=== PATIENT | female | born 1935 | race Hispanic/Latino ===

== ENCOUNTER → 2019-03-06 | Outpatient (CLI) | payer MEDICARE ==
[~2019-03-06] MED LIST: AMOX TR-K CLV1 EAC1 PO; ASCORBIC ACID500 MG PO; DEXILANT60 MG PO; DIOVAN320 MG PO; ECOTRIN81 MG PO; FAMOTIDINE40 MG PO; FERROUS SULFAT325 M1 PO; FLAGYL500 MG PO; FUROSEMIDE INJ 10 MG/ML 4 ML VIAL ONE; LATANOPROST2.5 ML OU; LUBRICANT EYE D15 M1 OP; MELOXICAM15 MG PO; METHOCARBAMOL750 MG PO; MIRTAZAPINE30 MG PO; NORVASC10 MG PO; PANTOPRAZOLE SO40 MG PO; POTASSIUM CHLO10 MEQ PO; QUESTRAN PACKET4 GM PO; REFRESH OPTIVE10 ML OU; ROPINIROLE HCL0.5 MG PO; SIMBRINZA OP; SIMBRINZA OU; SULFASALAZINE500 MG PO; SYSTANE GEL EYE10 ML OU; TEMAZEPAM15 MG PO; ULTRAM 50MG50 MG PO; VANCOCIN HCL250 MG PO; VITAMIN B-121000 MCG PO
--- NOTE | 2019-03-06 17:38 | Diagnostic Imaging Report ---
Renal Scan with Lasix Washout Clinical information: 83 F with renal calculi and frequent UTI's Technique: Following intravenous administration of 11 mCi of Tc-99m MAG3, dynamic images of the kidneys in the posterior projection were obtained through 40 minutes. Lasix 40 mg was administered intravenously at 10 minutes post injection of the tracer. Report: Left kidney: Perfusion of the left kidney is prompt. The kidney has a distorted reniform shape and is significantly reduced in size. A photopenic defect is seen in the upper pole medially; this never fills with tracer during the study. Extraction of tracer from the blood pool by the remaining renal parenchyma is mildly reduced although may be normal for age. Clearance of tracer from the renal parenchyma begins promptly. The pelvicalyceal system is not dilated. No significant increased pooling of tracer is seen within the pelvicalyceal system. Drainage of tracer from the pelvicalyceal system is adequate prior to administration of Lasix. No significant stasis of tracer is seen within the left ureter. Right kidney: Perfusion to the right kidney is prompt. The right kidney has a slightly elongated reniform shape with thinning of the renal parenchyma in the upper and lower pole. Extraction of tracer by the renal parenchyma is mildly decreased although may be normal for age. Clearance of tracer from the renal parenchyma is prompt. The pelvicalyceal system is not dilated. Two ureters are identified. These merge into a single ureter in the proximal third of the ureter. Physiologic pooling of tracer is seen within the pelvicalyceal system. Drainage of tracer from the pelvicalyceal system is adequate prior to administration of Lasix. No significant stasis of tracer is seen within the right ureter. Differential renal function: The left kidney contributes 35% of total renal function and the right kidney contributes 65% (normal 43-57%). Impression: 1. Significant loss of renal parenchyma due to scarring in the left kidney accounts for the decreased differential function of 35%. Some medical renal disease is present. No hydronephrosis is present. No physiologically significant obstruction of the renal collecting system is present. A perirenal cyst is present in the upper pole medially. 2. Some loss of renal function is seen in the right kidney, evidenced by the thinning of the renal cortex in the upper and lower poles. Medical renal disease is also present. No hydronephrosis is present. No physiologically significant obstruction of the renal collecting system is present. 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 Signed by: Dr. Caty Mills M.D. on 03/06/2019 5:35 PM
== END ==
LOC: NM 10:02
PROVIDERS: ATTEND Urology
DX: N20.0 Calculus of kidney (principal); N39.0 Urinary tract infection, site not specified; R31.21 Asymptomatic microscopic hematuria
CPT/HCPCS: 78708; A9562; J1940

== ENCOUNTER 2019-03-24 06:54 | Inpatient (IN) | payer MEDICARE ==
[~2019-03-24] VITALS: Ht 149.9 cm; Wt 63.5 kg
--- OUTSIDE RECORDS SUMMARY | 2019-03-24 06:57 | XMS REPORT ---
Author Author Rose Santizo [facility] eClinicalWorks Address Unknown Phone Unavailable Care Team Providers Care Dairy Manager Name Role Phone Rose Santizo Unavailable Allergies, Adverse Reactions, Alerts Substance Reaction Event Type N.K.D.A. 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 Medications Medication Code System Code Instructions Start Date End Date Status Dosage Potassium Chloride [facility] [address]-33 10 MEQ Orally Twice a day Active 1 capsule with food Clopidogrel Bisulfate [facility] 91714082621 75 MG Orally Once a day Active 1 tablet Mirtazapine [facility] 47867473790 30 MG Orally Once a day Active 1 tablet at bedtime Vitamin D (Ergocalciferol) [facility] 77359251966 47750 UNIT Orally Active 1 capsule Furosemide [facility] [address]-31 20 MG Orally prn Active 1 tablet Latanoprost [facility] 48145606272 0.005 % Ophthalmic Once a day Active 1 drop into affected eye in the evening Ciprofloxacin [facility] [address]-85 500 MG Orally every 12 hrs Active not defined Dexilant [facility] 74406180631 60 MG Orally Once a day Active 1 capsule Valsartan [facility] [address]-57 160 MG Orally Once a day Active 1 null Famotidine [facility] 35793382067 40 MG Orally Once a day Active 1 tablet at bedtime Vitamin C [facility] 83873863946 250 MG Orally Once a day Active 1 tablet Sulfasalazine ND 34155359684 500 MG Orally every 6 hrs Active 1 tablet Ropinirole HCl [facility] 46195510894 0.5 MG Orally Once a day Active 1 tablet 1 to 3 hours before bedtime OcuSoft Lid Scrub [facility] 67246270014 - Externally Active as directed Tylenol [facility] 90694975667 325 MG Orally every 4 hrs Active 1 tablet as needed Simbrinza [facility] 83768859285 1-0.2 % Ophthalmic Three times a day Active 1 drop into affected eye Ecotrin Low Strength [facility] 26162124563 81 MG Orally Once a day Active 1 tablet Vital Signs Date/Time: February 08, 2019 BMI 30.77 Index Weight 142.2 lbs Height 57 in Temperature 97.4 F Cardiac Monitoring Heart Rate 96 /min Blood Pressure Diastolic 76 mm Hg Blood Pressure Systolic 118 mm Hg Results No Known Results Summary Purpose eClinicalWorks Submission
--- OUTSIDE RECORDS SUMMARY | 2019-03-24 06:57 | XMS REPORT ---
Author [facility] Address Unknown Phone Unavailable Care Team Providers Care Line Clearance Foreman Name Role Phone KATHY MACDONALD Unavailable Unavailable Payers Payer Name Policy Type Policy Number Effective Date Expiration Date Problems This patient has no known problems. Allergies, Adverse Reactions, Alerts Allergy Name Allergy Type Status Severity Reaction(s) Onset Date Inactive Date Treating Clinician Comments No Known Drug Allergies DA Active U 2019-02-24 00:00:00 No Known Allergies DA Active U 2018-07-25 00:00:00 No Known Allergies DA Active U 2018-05-29 00:00:00 No Known Allergies DA Active U 2016-09-03 00:00:00 Medications This patient has no known medications. Results Test Description Test Time Test Comments Text Results Atomic Results Result Comments BASIC METABOLIC PANEL 2019-03-15 06:21:00 SODIUM (test code=NA) 142 mmol/L 136-145 POTASSIUM (test code=K) 4.4 mmol/L 3.5-5.1 CHLORIDE (test code=CL) 104.0 mmol/L 98-107 CARBON DIOXIDE (test code=CO2) 21.9 mmol/L 21-32 GLUCOSE (test code=GLU) 136 mg/dL 70-110 BLOOD UREA NITROGEN (test code=BUN) 30 mg/dL 7-18 GLOMERULAR FILTRATION RATE (test code=GFR) 45.0 >60 Unit of measure: mL/min/1.73 [id number] Range:Healthy Adults >90 mL/min/1.73 m2 For Chronic Kidney Disease: Stage II Mild Decrease in GFR 60-90 Stage III Moderate Decrease in GFR 30-59 Stage IV Severe Decrease in GFR 15-29 Stage V Kidney Failure <15 CREATININE (test code=CREAT) 1.15 mg/dL 0.55-1.30 CALCIUM (test code=CA) 10.2 mg/dL 8.2-10.1 HGB [id number] 05:43:00* Test Item Value Reference Range Comments HEMOGLOBIN (test code=HGB) 12.1 g/dL 12-16 HEMATOCRIT (test code=HCT) 37.4 % 37-47 RENAL SCAN [id number] 17:20:00 [place] [id number] Patient Name: ANNA PÉREZ MR #: [id number] : 1935 Age/Sex: 83/F Req #: [id number] Adm Physician: Ordered by: KATHY MACDONALD MD Report #: [id number] Location: OR Room/Bed: Procedure: [id number] NM/ RENAL SCAN W/LASIX Exam Date: Exam Time: REPORT STATUS: Signed Renal Scan with Las ix Washout Clinical information: 83 F with renal calculi and frequent UTI's Technique: Following intravenous administration of 11 mCi of Tc-99m MAG3, dynamic images of the kidneys in the posterior projection were obtained through 40 minutes. Lasix 40 mg was administered intravenously at 10 minutes post injection of the tracer. Report: Left kidney: Perfusion of the left k idney is prompt. The kidney has a distorted reniform shape and is significant ly reduced in size. A photopenic defect is seen in the upper pole medially; t his never fills with tracer during the study. Extraction of tracer from the blood pool by the remaining renal parenchyma is mildly reduced although may be normal for age. Clearance of tracer from the renal parenchyma begins promptl y. The pelvicalyceal system is not dilated. No significant increased pooling of tracer is seen within the pelvicalyceal system. Drainage of tracer from t he pelvicalyceal system is adequate prior to administration of Lasix. No sign ificant stasis of tracer is seen within the left ureter. Right kidney: Pe rfusion to the right kidney is prompt. The right kidney has a slightly elonga blaine reniform shape with thinning of the renal parenchyma in the upper and lowe r pole. Extraction of tracer by the renal parenchyma is mildly decreased altho ugh may be normal for age. Clearance of tracer from the renal parenchyma is pr ompt. The pelvicalyceal system is not dilated. Two ureters are identified. T hese merge into a single ureter in the proximal third of the ureter. Physiolo gic pooling of tracer is seen within the pelvicalyceal system. Drainage of tr acer from the pelvicalyceal system is adequate prior to administration of Lasi x. No significant stasis of tracer is seen within the right ureter. Diff erential renal function: The left kidney contributes 35% of total renal functi on and the right kidney contributes 65% (normal 43-57%). Impression: 1. Significant loss of renal parenchyma due to scarring in the left kidney acc ounts for the decreased differential function of 35%. Some medical renal dise ase is present. No hydronephrosis is present. No physiologically significant obstruction of the renal collecting system is present. A perirenal cyst is p resent in the upper pole medially. 2. Some loss of renal function is seen i n the right kidney, evidenced by the thinning of the renal cortex in the upper and lower poles. Medical renal disease is also present. No hydronephrosis is present. No physiologically significant obstruction of the renal collecting s ystem is present. 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 Signed by: Dr. Joe Mills M.D. on 03/06/2019 5:35 PM Dictated By: JOE MILLS MD E lectronically Signed By: JOE MILLS MD on 03/06/191734 Transcribed By: ESSIE Dumont on 03/06/191734 COPY TO: KATHY MACDONALD MD COMPREHENSIVE METABOLIC [id number] 15:47:00* Test Item Value Reference Range Comments SODIUM (test code=NA) 133 mmol/L 136-145 POTASSIUM (test code=K) 4.1 mmol/L 3.5-5.1 CHLORIDE (test code=CL) 100.0 mmol/L 98-107 CARBON DIOXIDE (test code=CO2) 25.5 mmol/L 21-32 GLUCOSE (test code=GLU) 91 mg/dL 70-110 BLOOD UREA NITROGEN (test code=BUN) 13 mg/dL 7-18 GLOMERULAR FILTRATION RATE (test code=GFR) 58.9 >60 Unit of measure: mL/min/1.73 [id number] Range:Healthy Adults >90 mL/min/1.73 m2 For Chronic Kidney Disease: Stage II Mild Decrease in GFR 60-90 Stage III Moderate Decrease in GFR 30-59 Stage IV Severe Decrease in GFR 15-29 Stage V Kidney Failure <15 CREATININE (test code=CREAT) 0.91 mg/dL 0.55-1.30 TOTAL PROTEIN (test code=PROT) 6.9 g/dL 6.4-8.2 ALBUMIN (test code=ALB) 3.6 g/dL 3.4-5.0 GLOBULIN (test code=GLOB) 3.3 g/dL 2.2-4.2 ALBUMIN/GLOBULIN RATIO (test code=A/G) 1.1 0.7-2.0 CALCIUM (test code=CA) 9.9 mg/dL 8.2-10.1 BILIRUBIN TOTAL (test code=BILT) 0.27 mg/dL 0.2-1.00 SGOT/AST (test code=AST) 10.0 U/L 15-37 SGPT/ALT (test code=ALT) 14.0 U/L 12-78 Please note new normal range. ALKALINE PHOSPHATASE TOTAL (test code=ALKP) 85 U/L 46-116 URINALYSIS [id number] 15:38:00* Test Item Value Reference Range Comments UA COLOR (test code=COLU) YELLOW YELLOW UA APPEARANCE (test code=APPU) CLOUDY CLEAR UA GLUCOSE DIPSTICK (test code=DGLUU) NEGATIVE NEGATIVE UA BILIRUBIN DIPSTICK (test code=BILU) NEGATIVE NEGATIVE UA KETONE DIPSTICK (test code=KETU) NEGATIVE mg/dL NEG UA SPECIFIC GRAVITY (test code=SGU) 1.020 1.003-1.035 UA BLOOD DIPSTICK (test code=KWESI) TRACE NEGATIVE UA PH DIPSTICK (test code=FCO) 6.0 >6.5 UA PROTEIN DIPSTICK (test code=PROU) NEGATIVE mg/dL NEG UA UROBILINIOGEN DIPSTICK (test code=URO) 0.2 mg/dL NORM UA NITRITE DIPSTICK (test code=GERALD) NEGATIVE NEG UA LEUKOCYTE ESTERASE DIPSTICK (test code=LEUU) 2+ NEGATIVE UA WBC (test code=WBCU) >30 /HPF 0-2 UA RBC (test code=RBCU) 0-2 /HPF 0-2 UA EPITHELIAL CELLS (test code=EPIU) FEW /HPF 0-2 UA BACTERIA (test code=BACU) LOADED /HPF NONE PROTHROMBIN [id number] 15:38:00* Test Item Value Reference Range Comments PROTHROMBIN TIME PATIENT (test code=PTP) 11.7 secs 10.1-12.5 INTERNATIONAL NORMAL RATIO (test code=INR) 1.04 <2.0 RECOMMENDED THERAPEUTIC RANGE FOR ORAL ANTICOAGULANTTREATMENT: CONDITION INRProphylaxis of venous thrombosis in 2.0 - 3.0 high-risk medical or surgical patientsTreatment of venous thrombosis 2.0 - 3.0Prevention of embolism 2.0 - 3.0Prevention of recurrent embolism, or 3.0 - 4.5 patients with mechanical prosthetic intravascular valves IS PATIENT ON ANTICOAGULANTS ? YLIST ANTICOAGULANT/ANTI PLT MEDICATION : Aspirin Has Lab been notified if Patient is on Heparin Drip? NOTHROMBOPLASTIN TIME [id number] 15:38:00* Test Item Value Reference Range Comments PTT ACTIVATED (test code=APTT) 29.8 secs 24.9-37.0 IS PATIENT ON ANTICOAGULANTS ? YLIST ANTICOAGULANT/ANTI PLT MEDICATION : Aspirin Has Lab been notified if Patient is on Heparin Drip? NOCBC W/AUTO [id number] 15:20:00* Test Item Value Reference Range Comments WHITE BLOOD CELL (test code=WBC) 5.0 K/mm3 5.8-11.0 RED BLOOD CELL (test code=RBC) 4.30 M/mm3 4.2-5.4 HEMOGLOBIN (test code=HGB) 12.7 g/dL 12-16 HEMATOCRIT (test code=HCT) 37.9 % 37-47 MEAN CELL VOLUME (test code=MCV) 88 fL 80-98 MEAN CELL HGB (test code=MCH) 29.5 pg 27-34 MEAN CELL HGB CONCENTRATION (test code=MCHC) 33.5 g/dL 30.8-34.1 RED CELL DISTRIBUTION WIDTH (test code=RDW) 15.7 % 11-16 PLT (test code=PLT) 167 K/mm3 130-400 MEAN PLATELET VOLUME (test code=MPV) 11.9 fL 8.9-12.1 NEUTROPHIL % (test code=NT%) 53.5 % 45-70 LYMPHOCYTE % (test code=LY%) 39.1 % 20-40 MONOCYTE % (test code=MO%) 6.6 % 3-10 EOSINOPHIL % (test code=EO%) 0.4 % 1-5 BASOPHIL % (test code=BA%) 0.2 % 0.0-1.1 NEUTROPHIL # (test code=NT#) 2.67 K/mm3 2.00-7.50 LYMPHOCYTE # (test code=LY#) 1.95 K/mm3 1.50-4.00 MONOCYTE # (test code=MO#) 0.33 K/mm3 0.2-0.8 EOSINOPHIL # (test code=EO#) 0.02 K/mm3 0.04-0.4 BASOPHIL # (test code=BA#) 0.01 K/mm3 0.02-0.10 MANUAL DIFF REQUIRED (test code=MDIFF) NO MANUAL DIFF NUCLEATED RED BLOOD CELL (test code=NRBC) 0 % 0-0
--- OUTSIDE RECORDS SUMMARY | 2019-03-24 06:57 | XMS REPORT ---
Author Author Rose Santizo [facility] eClinicalWorks Address Unknown Phone Unavailable Care Team Providers Care Die Sinker Apprentice Name Role Phone Rose Santizo Unavailable Allergies, [...] Instructions Start Date End Date Status Dosage Vitamin C [facility] 19091322407 250 MG Orally Once a day Active 1 tablet Mirtazapine ND 41793279202 30 MG Orally Once a day Active 1 tablet at bedtime Tylenol ND 60190068925 325 MG Orally every 4 hrs Active 1 tablet as needed Dexilant [facility] 58641862761 60 MG Orally Once a day Active 1 capsule Clopidogrel Bisulfate ND 26017734398 75 MG Orally Once a day Active 1 tablet Latanoprost ND 80401270661 0.005 % Ophthalmic Once a day Active 1 drop into affected eye in the evening Potassium Chloride [facility] [address]-63 10 MEQ Orally Twice a day Active 1 capsule with food Vitamin D (Ergocalciferol) [facility] 83753682311 92216 UNIT Orally Active 1 capsule Ropinirole HCl ND 44325966167 0.5 MG Orally Once a day Active 1 tablet 1 to 3 hours before bedtime Sulfasalazine ND 60056470803 500 MG Orally every 6 hrs Active 1 tablet Simbrinza ND 13637025221 1-0.2 % Ophthalmic Three times a day Active 1 drop into affected eye PredniSONE ND 99537706301 5 MG Orally Once a day January 11, 2019 January 25, 2019 Active 2 tabs in the morning with food for 7 days, then 1 tablet per day for 7 days Valsartan [facility] [address]-71 160 MG Orally Once a day Active 1 null OcuSoft Lid Scrub [facility] 76612708298 - Externally Active as directed Famotidine [facility] 04847499610 40 MG Orally Once a day Active 1 tablet at bedtime Ecotrin Low Strength [facility] 65038380843 81 MG Orally Once a day Active 1 tablet Vital Signs Date/Time: January 11, 2019 BMI 29 Index Weight 134 lbs Height 57 in Temperature 98.7 F Cardiac Monitoring Heart Rate 76 /min Blood Pressure Diastolic 80 mm Hg Blood Pressure Systolic 146 mm Hg Results No Known Results Summary Purpose eClinicalWorks Submission
--- OUTSIDE RECORDS SUMMARY | 2019-03-24 06:57 | XMS REPORT | Continuity of Care Document ---
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 rheumatoid factor Active Problem 02/17/2019 Lee Darnell Medications Medication Details Route Status Patient Instructions Ordering Provider Order Date Source PredniSONE 2 tabs in the morning with food for 7 days, then 1 tablet per day for 7 days Orally Active 5 MG Orally Once a day [place] 01/11/2019 Lee Darnell Vitamin C 1 tablet Orally Active 250 MG Orally Once a day [place] Lee Darnell Mirtazapine 1 tablet at bedtime Orally Active 30 MG Orally Once a day [place] Lee Darnell Tylenol 1 tablet as needed Orally Active 325 MG Orally every 4 hrs [place] Lee Darnell Dexilant 1 capsule Orally Active 60 MG Orally Once a day [place] Lee Darnell Clopidogrel Bisulfate 1 tablet Orally Active 75 MG Orally Once a day Sukhdev Darnell Latanoprost 1 drop into affected eye in the evening Ophthalmic Active 0.005 % Ophthalmic Once a day Sukhdev Darnell Potassium Chloride 1 capsule with food Orally Active 10 MEQ Orally Twice a day [place] Lee Darnell Vitamin D (Ergocalciferol) 1 capsule Orally Active 22135 UNIT Orally [place] Lee Darnell Ropinirole HCl 1 tablet 1 to 3 hours before bedtime Orally Active 0.5 MG Orally Once a day [place] Lee Darnell Sulfasalazine 1 tablet Orally Active 500 MG Orally every 6 hrs Sukhdev Darnell Simbrinza 1 drop into affected eye Ophthalmic Active 1-0.2 % Ophthalmic Three times a day Santizochristina Darnell Valsartan 1 null Orally Active 160 MG Orally Once a day Sukhdev Darnell OcuSoft Lid Scrub as directed Externally Active - Externally Santizochristina Darnell Famotidine 1 tablet at bedtime Orally Active 40 MG Orally Once a day Santizochristina Darnell Ecotrin Low Strength 1 tablet Orally Active 81 MG Orally Once a day Santizochristina Darnell Furosemide 1 tablet Orally Active 20 MG Orally prn Santizo Lee Darnell Ciprofloxacin not defined Orally Active 500 MG Orally every 12 hrs Santizochristina Darnell Allergies, Adverse Reactions, Alerts Substance Category Reaction Severity Reaction type Status Date Reported Comments Source N.K.D.A. Adverse Reaction Info Not Available Adverse Reaction Active 02/08/2019 Lee Darnell Immunizations No Data Provided for This Section Results No Data Provided for This Section Pathology Reports No Data Provided for This Section Diagnostic Reports No Data Provided for This Section Consultation Notes No Data Provided for This Section Discharge Summaries No Data Provided for This Section History and Physicals No Data Provided for This Section Vital Signs Vital Sign Value Date Comments Source Weight 142.2 02/08/2019 Lee Seweller Height 57 02/08/2019 Lee Darnell Temperature Oral (F) 97.4 F 02/08/2019 Lee Darnell Heart Rate 96 02/08/2019 Lee Darnell Diastolic (mm Hg) 76 02/08/2019 Lee Darnell Systolic (mm Hg) 118 02/08/2019 Lee Darnell Weight 134 01/11/2019 Lee Darnell Height 57 01/11/2019 Lee Darnell Temperature Oral (F) 98.7 F 01/11/2019 Lee Darnell Heart Rate 76 01/11/2019 Lee Darnell Diastolic (mm Hg) 80 01/11/2019 Lee Darnell Systolic (mm Hg) 146 01/11/2019 Lee Darnell Encounters No Data Provided for This Section Procedures No Data Provided for This Section Assessment and Plan No Data Provided for This Section Plan of Care No Data Provided for This Section Social History No Data Provided for This Section Family History No Data Provided for This Section Advance Directives No Data Provided for This Section Functional Status No Data Provided for This Section
--- OUTSIDE RECORDS SUMMARY | 2019-03-24 07:08 | XMS REPORT | Continuity of Care Document ---
Author Author [facility] Address Unknown Phone Unavailable Care Team Providers Care Inserting Operator Name Role Phone [employer] Dennoo Unavailable Unavailable Problems Problem Status Onset Date [...] Active 5 MG Orally Once a day [place] 01/11/2019 Lee Darnell Vitamin C 1 tablet Orally Active 250 MG Orally Once a day [place] Lee Darnell Mirtazapine 1 tablet at bedtime Orally Active 30 MG Orally Once a day [place] Lee Darnell Tylenol 1 tablet as needed Orally Active 325 MG Orally every 4 hrs [place] Lee Darnell Dexilant 1 capsule Orally Active 60 MG Orally Once a day [place] Lee Darnell Clopidogrel Bisulfate 1 tablet Orally Active 75 MG Orally Once a day Sukhdev Darnell Latanoprost 1 drop into affected eye in the evening Ophthalmic Active 0.005 % Ophthalmic Once a day Sukhdev Darnell Potassium Chloride 1 capsule with food Orally Active 10 MEQ Orally Twice a day [place] Lee Darnell Vitamin D (Ergocalciferol) 1 capsule Orally Active 22393 UNIT Orally [place] Lee Darnell Ropinirole HCl 1 tablet 1 to 3 hours before bedtime Orally Active 0.5 MG Orally Once a day [place] Lee Darnell Sulfasalazine 1 tablet Orally Active [...]
[2019-03-24 07:46] LABS: INR 1.03; PARTIAL THROMBOPLASTIN TIME 28.3 seconds (23.8-35.5)
[2019-03-24 07:47] LABS: HEMATOCRIT 31.9 % (34.2-44.1); HEMOGLOBIN 10.2 g/dL (12.0-16.0); MEAN CORPUSCULAR HEMOGLOBIN 29.1 pg (28-32); MEAN CORPUSCULAR VOLUME 90.9 fL (81-99); PLATELET COUNT 198 x10e3/uL (140-360); RED BLOOD COUNT 3.51 x10e6/uL (3.6-5.1); RED CELL DISTRIBUTION WIDTH 15.2 % (11.7-14.4)
[2019-03-24 07:48] LABS: BASOPHILS % 0.3 % (0.0-1.0); EOSINOPHILS # (AUTO) 0.1 (0.0-0.4); EOSINOPHILS % 0.9 % (0.0-6.0); LYMPHOCYTES # (AUTO) 1.3 (1.0-3.2); LYMPHOCYTES % 21.4 % (18.0-39.1); MONOCYTES # (AUTO) 0.3 (0.2-0.8); MONOCYTES % 5.8 % (4.4-11.3); NEUTROPHILS # (AUTO) 4.2 (2.1-6.9); NEUTROPHILS % 71.1 % (38.7-80.0)
[2019-03-24 07:56] LABS: ALANINE AMINOTRANSFERASE 10 IU/L (0-55); ALBUMIN 3.1 g/dL (3.5-5.0); ALBUMIN/GLOBULIN RATIO 0.9 (0.8-2.0); ALKALINE PHOSPHATASE 74 IU/L (40-150); ANION GAP 13.9 mmol/L (8-16); BLOOD UREA NITROGEN 18 mg/dL (7-26); BUN/CREATININE RATIO 21 (6-25); CALCIUM 10.2 mg/dL (8.4-10.2); CARBON DIOXIDE 22 mmol/L (22-29); CHLORIDE 108 mmol/L (98-107); CREATININE, SERUM 0.84 mg/dL (0.57-1.11); EST GLOMERULAR FILTRATION RATE > 60 ML/MIN (60-); GLUCOSE 115 mg/dL (74-118); POTASSIUM 3.9 mmol/L (3.5-5.1); SODIUM 140 mmol/L (136-145)
[2019-03-24] MEDS ORDERED: ULTRAM 50MG50 MG PO (08:26)
[2019-03-24] MEDS ORDERED: DIOVAN320 MG PO (08:26)
[2019-03-24] MEDS ORDERED: SIMBRINZA OU (08:26)
[2019-03-24] MEDS ORDERED: REFRESH OPTIVE10 ML OU (08:26)
[2019-03-24] MEDS ORDERED: AMOX TR-K CLV1 EAC1 PO (08:26)
[2019-03-24] MEDS ORDERED: SYSTANE GEL EYE10 ML OU (08:26)
[2019-03-24] MEDS ORDERED: DEXILANT60 MG PO (08:26)
[2019-03-24] MEDS ORDERED: TEMAZEPAM15 MG PO (08:26)
[2019-03-24] MEDS ORDERED: METHOCARBAMOL750 MG PO (08:26)
[2019-03-24] MEDS ORDERED: ROPINIROLE HCL0.5 MG PO (08:26)
[2019-03-24] MEDS ORDERED: MIRTAZAPINE30 MG PO (08:26)
[2019-03-24] MEDS ORDERED: POTASSIUM CHLO10 MEQ PO (08:26)
[2019-03-24] MEDS ORDERED: LATANOPROST2.5 ML OU (08:26)
[2019-03-24] MEDS ORDERED: FAMOTIDINE40 MG PO (08:26)
[2019-03-24] MEDS ORDERED: ECOTRIN81 MG PO (08:26)
[2019-03-24] MEDS ORDERED: MELOXICAM15 MG PO (08:26)
[2019-03-24] MEDS ORDERED: SULFASALAZINE500 MG PO (08:26)
[2019-03-24 09:55] LABS: BASOPHILS % 0.7 % (0.0-1.0); EOSINOPHILS % 0.5 % (0.0-6.0); HEMATOCRIT 28.2 % (34.2-44.1); HEMOGLOBIN 9.1 g/dL (12.0-16.0); LYMPHOCYTES # (AUTO) 1.4 (1.0-3.2); MEAN CORPUSCULAR HEMOGLOBIN 29.4 pg (28-32); MEAN CORPUSCULAR HGB CONC 32.3 g/dL (31-35); MONOCYTES # (AUTO) 0.3 (0.2-0.8); MONOCYTES % 5.9 % (4.4-11.3); NEUTROPHILS % 68.2 % (38.7-80.0); PLATELET COUNT 178 x10e3/uL (140-360); RED CELL DISTRIBUTION WIDTH 15.3 % (11.7-14.4)
--- OUTSIDE RECORDS SUMMARY | 2019-03-24 11:25 | XMS REPORT | Continuity of Care Document ---
Author Author [employer] Address Unknown Phone Unavailable Care Team Providers Care Lighting Director Name Role Phone [employer] Unavailable Unavailable Problems Problem Status Onset Date [...] Active 5 MG Orally Once a day [place] 01/11/2019 Lee Darnell Vitamin C 1 tablet Orally Active 250 MG Orally Once a day [place] Lee Darnell Mirtazapine 1 tablet at bedtime Orally Active 30 MG Orally Once a day [place] Lee Darnell Tylenol 1 tablet as needed Orally Active 325 MG Orally every 4 hrs [place] Lee Darnell Dexilant 1 capsule Orally Active 60 MG Orally Once a day [place] Lee Darnell Clopidogrel Bisulfate 1 tablet Orally Active 75 MG Orally Once a day Sukhdev Darnell Latanoprost 1 drop into affected eye in the evening Ophthalmic Active 0.005 % Ophthalmic Once a day Sukhdev Darnell Potassium Chloride 1 capsule with food Orally Active 10 MEQ Orally Twice a day [place] Lee Darnell Vitamin D (Ergocalciferol) 1 capsule Orally Active 81944 UNIT Orally [place] Lee Darnell Ropinirole HCl 1 tablet 1 to 3 hours before bedtime Orally Active 0.5 MG Orally Once a day [place] Lee Darnell Sulfasalazine 1 tablet Orally Active [...]
[2019-03-24 12:33] VITALS: BP 152/71
--- NOTE | 2019-03-24 12:37 | NUR ---
Pt arrived on unit via stretcher, pt is AAOx3 in no acute distress noted, resp is even and unlabored, bed is locked, in lowest position, and side rails up x2. Pt and family oriented safety and to use the call light for assistance. Pt and family members verbalized understanding.
[2019-03-24 12:59] VITALS: BP 152/71
[2019-03-24] MEDS ORDERED: PROTONIX 200MG/SODIUM CHLORIDE 0.9% 250 ML BAG IV SCH (13:45)
[2019-03-24] MEDS ORDERED: PANTOPRAZOLE 40 MG 10ML VIAL IV SCH (13:45)
[2019-03-24] MEDS: VALSARTAN 160 MG TAB PO SCH (14:00)
--- NOTE | 2019-03-24 14:00 | NUR ---
Informed Dr. Estrada of new consult
[2019-03-24] MEDS ORDERED: PANTOPRAZOLE INJ 80 MG in SODIUM CHLORIDE 0.9% 100 ML IV ONE ×2 (15:00→16:30)
--- NOTE | 2019-03-24 15:45 | NUR ---
Pt is back from [employer], she's AAo3 in no acute distress noted. Will continue to monitor.
--- NOTE | 2019-03-24 15:59 | Diagnostic Imaging Report ---
Tagged-RBC GI Bleed Study Clinical information: 83-year-old female with rectal bleeding. Discussion: The patient's own red blood cells were labeled with 25 mCi of technetium-99m pertechnetate using the in vitro method (UltraTag). Dynamic images of the abdomen were obtained through 60 minutes. Distribution of tracer activity appears physiologic throughout the abdomen. No abnormal accumulation of tracer is seen within the gastrointestinal lumen. Impression: No scan evidence of active gastrointestinal bleeding at this time. Signed by: Dr. Caty Mills M.D. on 03/24/2019 3:55 PM
[2019-03-24 16:22] LABS: HEMATOCRIT 29.4 % (34.2-44.1); HEMOGLOBIN 9.3 g/dL (12.0-16.0)
[2019-03-24 16:28] VITALS: BP 121/52
[2019-03-24 17:00] VITALS: BP 121/52
--- NOTE | 2019-03-24 17:10 | NUR ---
Stool sample collected and sent to lab but spec is rejected veterinary laboratory technician sts, "I have to discard the specimen because there is no stool in the spec, it's just blood clot."
[2019-03-24] MEDS: PANTOPRAZOL 40MG/SOD CHL 0.9% 50 ML IV SCH ×2 (17:31→23:21)
[2019-03-24 20:21] VITALS: BP 131/61
[2019-03-24] MEDS: TEMAZEPAM 15 MG CAP PO SCH (21:00)
--- NOTE | 2019-03-24 21:33 | NUR ---
PT C/O NEED TO VOID. PT FAMILY STATES SHE HAS NOT VOIDED AT ALL TODAY. BLADDER SCAN SHOWS 884ML. NIDIA DAWN FOR DR. LAMBERT NOTIFIED AND STRAIGHT CATH ORDERED WITH UA AND CULTURE.
--- NOTE | 2019-03-24 21:58 | NUR ---
STRAIGHT CATH COMPLETED AT THIS TIME WITHOUT ANY COMPLICATIONS. PATRICE, CHARGE NURSE PRESENT AT BEDSIDE DURING PROCEDURE. UA SENT TO LAB. PT DAUGHTER IS AT BEDSIDE, CALL LIGHT IS IN REACH. Addendum: 03/25/19 at 0733 by Araceli Quintanilla RN STRAIGHT CATH URINE OUTPUT 1000ML.
[2019-03-24 22:14] LABS: BILIRUBIN,URINE NEGATIVE (NEGATIVE); CLARITY,URINE SL CLOUDY (CLEAR); COLOR,URINE YELLOW (YELLOW); KETONES,URINE TRACE (NEGATIVE); LEUKOCYTE ESTERASE ,URINE TRACE (NEGATIVE); NITRITE,URINE NEGATIVE (NEGATIVE); PROTEIN,URINE DIPSTICK NEGATIVE (NEGATIVE); URINE UROBILINOGEN 0.2 mg/dL (0.2 - 1)
[2019-03-24 22:46] LABS: AMORPHOUS SEDIMENT,URINE MODERATE (FEW); BACTERIA,URINE MANY /HPF; EPITHELIAL CELLS,URINE FEW /LPF; RBC,URINE 21-50 /HPF (0-5); WBC,URINE (MAN) >50 /HPF (0-5)
[2019-03-25] VITALS (9 sets, daily range): BP systolic 96–150; BP diastolic 46–67
[2019-03-25 01:06] LABS: HEMOGLOBIN 7.6 g/dL (12.0-16.0)
--- NOTE | 2019-03-25 01:38 | NUR ---
DR. GOLDMAN NOTIFIED OF CRITICAL H/H RESULTS. PER CALL IF HGB <7.0 AT THE AM LAB DRAW.
[2019-03-25] MEDS: PANTOPRAZOL 40MG/SOD CHL 0.9% 50 ML IV SCH ×5 (04:27→21:47)
[2019-03-25 06:35] LABS: BASOPHILS % 0.3 % (0.0-1.0); EOSINOPHILS % 0.2 % (0.0-6.0); HEMOGLOBIN 7.9 g/dL (12.0-16.0); LYMPHOCYTES # (AUTO) 1.9 (1.0-3.2); LYMPHOCYTES % 30.1 % (18.0-39.1); MEAN CORPUSCULAR HEMOGLOBIN 29.3 pg (28-32); MEAN CORPUSCULAR HGB CONC 31.6 g/dL (31-35); MEAN CORPUSCULAR VOLUME 92.6 fL (81-99); MONOCYTES # (AUTO) 0.4 (0.2-0.8); MONOCYTES % 6.5 % (4.4-11.3); NEUTROPHILS % 62.4 % (38.7-80.0); PLATELET COUNT 187 x10e3/uL (140-360); RED CELL DISTRIBUTION WIDTH 15.6 % (11.7-14.4)
--- NOTE | 2019-03-25 06:54 | NUR ---
RECEIVED PATIENT RESTING IN BED. NO ACUTE DISTRESS NOTED. DAUGHTER AT BEDSIDE. DENIES PAIN OR DISCOMFORT AT THIS TIME. CALL LIGHT WITHIN REACH. BED IN THE LOWEST POSITION.
[2019-03-25 07:00] LABS: % IRON SATURATION 16 % (15-50); ANION GAP 12.8 mmol/L (8-16); BLOOD UREA NITROGEN 25 mg/dL (7-26); BUN/CREATININE RATIO 30 (6-25); CALCIUM 9.3 mg/dL (8.4-10.2); CARBON DIOXIDE 19 mmol/L (22-29); CHLORIDE 114 mmol/L (98-107); CREATININE, SERUM 0.83 mg/dL (0.57-1.11); EST GLOMERULAR FILTRATION RATE > 60 ML/MIN (60-); GLUCOSE 98 mg/dL (74-118); IRON 37 ug/dL (50-170); POTASSIUM 3.8 mmol/L (3.5-5.1); SODIUM 142 mmol/L (136-145); TOTAL IRON BINDING CAPACITY 230 ug/dL (261-478); TRANSFERRIN 164 mg/dL (180-382)
--- NOTE | 2019-03-25 07:00 | NUR ---
PT BLADDER SCANNED AT THIS TIME, 163ML NOTED.
[2019-03-25 07:21] LABS: FREE T4 (FREE THYROXINE) 1.14 ng/dL (0.8-1.8)
--- NOTE | 2019-03-25 07:30 | NUR ---
APPLIED BED PUMP TO PATIENT'S BED.
[2019-03-25 07:45] LABS: FOLATE 8.7 ng/mL (7.0-15.4)
[2019-03-25] MEDS ORDERED: HYDRALAZINE HCL 20 MG/ML VIAL IV PRN (08:00)
[2019-03-25] MEDS ORDERED: ONDANSETRON HCL INJ 2MG/ML 2ML 2 MG/ML VIAL IV PRN (08:00)
[2019-03-25] MEDS ORDERED: SODIUM CHLORIDE 0.9% 250ML 250 ML ONE (08:15)
[2019-03-25] MEDS: CEFTRIAXONE SOD 1 GM/NS 50 ML 50 ML IV SCH (08:47)
[2019-03-25] MEDS ORDERED: LUBRICANT EYE D15 M1 OP (08:47)
[2019-03-25] MEDS ORDERED: SIMBRINZA OP (08:47)
[2019-03-25] MEDS ORDERED: PANTOPRAZOLE 40 MG 10ML VIAL IV SCH (09:00)
[2019-03-25] MEDS ORDERED: LATANOPROST(OPTH) 2.5 ML BTL OU SCH (09:00)
[2019-03-25] MEDS: SIMBRINZA OP SCH ×2 (09:35→21:00)
[2019-03-25] MEDS: ARTIFICIAL TEARS (OPTH) 15 ML BTL OU SCH ×2 (09:35→21:47)
--- NOTE | 2019-03-25 14:45 | NUR ---
NOTIFIED NIDIA SAUNDERS OF POSITIVE C-DIFF. NEW ORDER FOR PO VANCOMYCIN RECEIVED AND FOLLOWED.
--- NOTE | 2019-03-25 15:38 | NUR ---
PATIENT OFF THE UNIT FOR PROCEDURE AT THIS TIME.
--- NOTE | 2019-03-25 16:50 | Operative Report ---
DATE OF PROCEDURE: 03/25/2019 SURGEON: Christian Estrada MD PROCEDURE: An EGD with biopsies. INDICATIONS FOR PROCEDURE: Upper abdominal pain, melena, and anemia. MEDICATIONS: The patient was done under MAC, please see anesthesiologist's note. PROCEDURE IN DETAIL: With the patient in left lateral decubitus position, flexible fiberoptic Olympus gastroscope was introduced into the esophagus under direct visualization without any difficulty. An approximately 4 mm nodule was noted in the cervical esophagus, that was biopsied. The mucosa overlying the distal esophagus was within normal limits. The scope was then advanced with ease into the stomach traversing a small sliding hiatal hernia. Mucosa overlying the antrum and the body revealed some patchy erythema and [id number] edema. Biopsies were obtained and sent to stain for H. pylori. Pylorus was of normal contour and shape, it was intubated with ease and the scope was advanced all the way to the second portion of the duodenum. The scope was then withdrawn slowly mucosa overlying the proximal second portion and the duodenal bulb appeared to be within normal limits. The scope was then withdrawn back into the stomach and retroflexed, mucosa overlying the fundus and cardia appeared to be within normal limits. The scope was then straightened out. The stomach was decompressed. The scope was subsequently withdrawn. The patient tolerated the procedure well. IMPRESSION: 1. Cervical esophagus, nodule, biopsied. 2. Small sliding hiatal hernia. 3. Gastritis. PLAN: Follow up histology. Findings do not explain the patient's anemia. The patient will benefit from a colonoscopy. Christian Estrada MD [facility] [place] [place] /[id number] cc: Michael Jarvis MD
--- NOTE | 2019-03-25 17:22 | NUR ---
PATIENT BACK TO UNIT AT THIS TIME. SHE IS IN STABLE CONDITION. FAMILY AT BEDSIDE.
[2019-03-25] MEDS: VANCOMYCIN 250MG/5ML ORAL SOLN PO SCH (18:10)
[2019-03-25] MEDS: VALSARTAN 160 MG TAB PO SCH (18:10)
[2019-03-25] MEDS: CYANOCOBALAMIN 1,000 MCG TAB PO SCH (18:10)
[2019-03-25] MEDS ORDERED: PROPOFOL IV EMULSION 10 MG/ML 50 ML VIAL ONE (18:57)
--- NOTE | 2019-03-25 19:37 | NUR ---
REPORT GIVEN TO ONCOMING NURSE, WALKING ROUNDS DONE. PATIENT IS IN STABLE CONDITION. NO ACUTE DISTRESS NOTED. FAMILY AT BEDSIDE. CALL LIGHT WITHIN REACH. BED IN THE LOWEST POSITION.
--- NOTE | 2019-03-25 20:47 | NUR ---
PATIENT ASSISTED TO THE BEDSIDE COMMODE, SHE'S VERY UNSTEADY AND WEAK ON HER GAIT. CALL LIGHT WITHIN EASY REACH, FAMILY MEMBERS ARE TOLD TO CALL FOR ASSISTANCE WHEN THE PATIENT IS COMPLETED SO THAT SHE CAN BE ASSISTED BACK TO THE BED. CARE NOW TRANSFER TO ANOTHER STAFF NURSE.
[2019-03-25] MEDS: LATANOPROST(OPTH) 2.5 ML BTL OU SCH (21:46)
[2019-03-25] MEDS: TEMAZEPAM 15 MG CAP PO SCH (21:47)
[2019-03-26] VITALS (8 sets, daily range): BP systolic 127–170; BP diastolic 62–76
[2019-03-26] MEDS: VANCOMYCIN 250MG/5ML ORAL SOLN PO SCH ×5 (00:04→23:06)
[2019-03-26] MEDS: PANTOPRAZOL 40MG/SOD CHL 0.9% 50 ML IV SCH ×6 (02:30→22:39)
[2019-03-26] MEDS: TRAMADOL HCL 50 MG TAB PO PRN ×2 (04:01→13:18)
[2019-03-26 05:12] LABS: BASOPHILS % 0.3 % (0.0-1.0); EOSINOPHILS # (AUTO) 0.1 (0.0-0.4); EOSINOPHILS % 0.7 % (0.0-6.0); HEMOGLOBIN 7.9 g/dL (12.0-16.0); LYMPHOCYTES # (AUTO) 3.1 (1.0-3.2); LYMPHOCYTES % 35.3 % (18.0-39.1); MEAN CORPUSCULAR HEMOGLOBIN 29.5 pg (28-32); MEAN CORPUSCULAR HGB CONC 31.6 g/dL (31-35); MEAN CORPUSCULAR VOLUME 93.3 fL (81-99); MONOCYTES # (AUTO) 0.5 (0.2-0.8); MONOCYTES % 5.7 % (4.4-11.3); NEUTROPHILS % 57.5 % (38.7-80.0); PLATELET COUNT 202 x10e3/uL (140-360); RED BLOOD COUNT 2.68 x10e6/uL (3.6-5.1); RED CELL DISTRIBUTION WIDTH 15.9 % (11.7-14.4)
[2019-03-26 05:34] LABS: ANION GAP 13.8 mmol/L (8-16); BLOOD UREA NITROGEN 26 mg/dL (7-26); BUN/CREATININE RATIO 31 (6-25); CALCIUM 9.7 mg/dL (8.4-10.2); CARBON DIOXIDE 18 mmol/L (22-29); CHLORIDE 114 mmol/L (98-107); CREATININE, SERUM 0.84 mg/dL (0.57-1.11); EST GLOMERULAR FILTRATION RATE > 60 ML/MIN (60-); GLUCOSE 94 mg/dL (74-118); POTASSIUM 3.8 mmol/L (3.5-5.1); SODIUM 142 mmol/L (136-145)
--- NOTE | 2019-03-26 06:11 | NUR ---
Received patient from day nurse, patient is stable, introduced self to patient and patient denies any concerns.
--- NOTE | 2019-03-26 06:56 | NUR ---
RECEIVED PATIENT RESTING IN BED. NO ACUTE DISTRESS NOTED. DENIES PAIN OR DISCOMFORT. FAMILY AT BEDSIDE. CALL LIGHT WITHIN REACH. BED IN THE LOWEST POSITION.
--- NOTE | 2019-03-26 07:11 | NUR ---
Patient endorsed to next shift for continuity of care.
[2019-03-26] MEDS: SIMBRINZA OP SCH ×2 (09:13→20:42)
[2019-03-26] MEDS: VALSARTAN 160 MG TAB PO SCH (09:13)
[2019-03-26] MEDS: CEFTRIAXONE SOD 1 GM/NS 50 ML 50 ML IV SCH (09:13)
[2019-03-26] MEDS: CYANOCOBALAMIN 1,000 MCG TAB PO SCH (09:13)
[2019-03-26] MEDS: ARTIFICIAL TEARS (OPTH) 15 ML BTL OU SCH ×2 (09:14→20:42)
[2019-03-26] MEDS: METRONIDAZOLE 500MG/NS 100ML 100 ML IV SCH ×2 (09:55→16:30)
[2019-03-26] MEDS ORDERED: BISACODYL 5 MG TAB EC PO ONE ×3 (16:30→17:30)
--- NOTE | 2019-03-26 19:07 | NUR ---
REPORT GIVEN TO ONCOMING NURSE, PATIENT IS RESTING IN BED. NO ACUTE DISTRESS NOTED. NO S/S OF PAIN NOTED. FAMILY MEMBERS AT BEDSIDE. CALL LIGHT WITHIN REACH. BED IN THE LOWEST POSITION.
--- NOTE | 2019-03-26 19:10 | NUR ---
PT IS RESTING IN BED WITH FAMILY AT BEDSIDE. RESPIRATION IS EVEN AND UNLABORED, NO DISTRESS NOTED. BED IN THE LOWEST POSITION, LOCKED, AND CALL LIGHT WITHIN REACH. WILL CONTINUE TO MONITOR.
[2019-03-26] MEDS: TEMAZEPAM 15 MG CAP PO SCH (20:42)
[2019-03-26] MEDS: LATANOPROST(OPTH) 2.5 ML BTL OU SCH (20:42)
[2019-03-26] MEDS ORDERED: CITRATE OF MAGNESIA 300ML BOTTLE PO ONE ×2 (21:00→23:00)
[2019-03-27] MEDS: METRONIDAZOLE 500MG/NS 100ML 100 ML IV SCH ×3 (00:57→17:02)
--- NOTE | 2019-03-27 01:55 | NUR ---
PER DR GOLDMAN IF PT HAS NOT HAD BOWEL MOVEMENT BY 0700 START ENEMA TILL CLEAR. WILL CONTINUE TO MONITOR.
[2019-03-27] MEDS: PANTOPRAZOL 40MG/SOD CHL 0.9% 50 ML IV SCH ×5 (02:48→23:30)
[2019-03-27 03:49] VITALS: BP 145/66
[2019-03-27 04:23] LABS: ANION GAP 13.5 mmol/L (8-16); BLOOD UREA NITROGEN 16 mg/dL (7-26); BUN/CREATININE RATIO 20 (6-25); CALCIUM 9.8 mg/dL (8.4-10.2); CARBON DIOXIDE 15 mmol/L (22-29); CHLORIDE 114 mmol/L (98-107); CREATININE, SERUM 0.79 mg/dL (0.57-1.11); EST GLOMERULAR FILTRATION RATE > 60 ML/MIN (60-); GLUCOSE 108 mg/dL (74-118); POTASSIUM 3.5 mmol/L (3.5-5.1); SODIUM 139 mmol/L (136-145)
[2019-03-27] MEDS: VANCOMYCIN 250MG/5ML ORAL SOLN PO SCH ×4 (05:39→23:27)
[2019-03-27 05:56] LABS: BASOPHILS % 0.4 % (0.0-1.0); EOSINOPHILS # (AUTO) 0.1 (0.0-0.4); EOSINOPHILS % 1.8 % (0.0-6.0); HEMATOCRIT 25.4 % (34.2-44.1); HEMOGLOBIN 7.8 g/dL (12.0-16.0); LYMPHOCYTES # (AUTO) 1.5 (1.0-3.2); MEAN CORPUSCULAR HEMOGLOBIN 29.2 pg (28-32); MEAN CORPUSCULAR HGB CONC 30.7 g/dL (31-35); MEAN CORPUSCULAR VOLUME 95.1 fL (81-99); MONOCYTES # (AUTO) 0.4 (0.2-0.8); MONOCYTES % 5.7 % (4.4-11.3); NEUTROPHILS # (AUTO) 5.5 (2.1-6.9); NEUTROPHILS % 71.5 % (38.7-80.0); PLATELET COUNT 222 x10e3/uL (140-360); RED BLOOD COUNT 2.67 x10e6/uL (3.6-5.1); RED CELL DISTRIBUTION WIDTH 15.9 % (11.7-14.4)
[2019-03-27 07:35] VITALS: BP 138/67
--- NOTE | 2019-03-27 07:35 | NUR ---
PATIENT ASSISTED TO THE BED SIDE COMMODE AND BACK TO BED. HAD A LARGE LIQUID STOOL, IS CLEANING UP FOR COLONOSCOPY. BED IN LOWER POSITION AND LOCKED, CALL LIGHT AT REACH.
[2019-03-27 08:09] VITALS: BP 138/67
[2019-03-27] MEDS ORDERED: PANTOPRAZOLE SO40 MG PO (08:35)
[2019-03-27] MEDS ORDERED: VITAMIN B-121000 MCG PO (08:35)
[2019-03-27] MEDS ORDERED: NORVASC10 MG PO (08:35)
[2019-03-27] MEDS ORDERED: VANCOCIN HCL250 MG PO (08:35)
[2019-03-27] MEDS ORDERED: FLAGYL500 MG PO (08:35)
[2019-03-27] MEDS ORDERED: QUESTRAN PACKET4 GM PO (08:44)
[2019-03-27] MEDS ORDERED: FERROUS SULFAT325 M1 PO (08:46)
[2019-03-27] MEDS ORDERED: ASCORBIC ACID500 MG PO (08:46)
[2019-03-27] MEDS: SIMBRINZA OP SCH ×2 (09:00→20:47)
[2019-03-27] MEDS: AMLODIPINE BESYLATE 10 MG TAB PO SCH (09:00)
[2019-03-27] MEDS: ARTIFICIAL TEARS (OPTH) 15 ML BTL OU SCH ×2 (09:30→21:30)
--- NOTE | 2019-03-27 11:24 | NUR ---
WATER ENEMA GIVEN TO PATIENT TILL CLEAR. AFTER AN HOUR PATIENT HAD A BLOODY LIQUID STOOL. MD NOTIFIED, NEW ORDER RECEIVED FOR ENEMA X 1. PATIENT NOTIFIED.
--- NOTE | 2019-03-27 11:32 | NUR ---
DISCUSSED IN BARRIER ROUNDS TODAY EGD SHOWS GASTRITIS; COLONOSCOPY TODAY HGB 7.8 AND 25.4
[2019-03-27 11:54] VITALS: BP 152/65
--- NOTE | 2019-03-27 14:33 | NUR ---
PATIENT OFF UNIT TO OR.
[2019-03-27] MEDS ORDERED: HYOSCYAMINE 0.125 MG TAB ONE (14:41)
--- NOTE | 2019-03-27 16:00 | NUR ---
PATIENT BACK TO UNIT FROM OR. REPORT RECEIVED FROM GAGANDEEP SCHNEIDER. PATIENT ALERT AND VERBALLY RESPONSIVE, BUT DROWSY. HAD A COLONOSCOPY; FINDINGS ARE DIVERTICULITIS AND INTERNAL HEMORRHOID. TELEMETRY BOX IN PLACE. IV PROTONIX INFUSING ORDERED. BED IN LOWER POSITION AND LOCKED. CALL LIGHT AT REACH.
[2019-03-27 16:20] VITALS: BP 144/66
[2019-03-27 17:00] LABS: HEMATOCRIT 23.8 % (34.2-44.1); HEMOGLOBIN 7.6 g/dL (12.0-16.0)
[2019-03-27] MEDS: VALSARTAN 160 MG TAB PO SCH (17:01)
[2019-03-27] MEDS: CYANOCOBALAMIN 1,000 MCG TAB PO SCH (17:02)
[2019-03-27] MEDS ORDERED: PROPOFOL IV EMULSION 10 MG/ML 50 ML VIAL ONE (18:46)
[2019-03-27] MEDS ORDERED: GLUCAGON FOR INJ 1 MG VIAL ONE (18:46)
[2019-03-27] MEDS ORDERED: FENTANYL CITRATE/PF 100MCG/2 ML INJ ONE (18:46)
[2019-03-27 20:00] VITALS: BP 160/63
--- NOTE | 2019-03-27 20:00 | NUR ---
Received change of shift report from AM nurse. Walking rounds completed.
[2019-03-27] MEDS: TEMAZEPAM 15 MG CAP PO SCH (20:29)
[2019-03-27] MEDS: LATANOPROST(OPTH) 2.5 ML BTL OU SCH (20:29)
--- NOTE | 2019-03-27 22:22 | Operative Report ---
DATE OF PROCEDURE: 03/27/2019 SURGEON: Christian Estrada MD PROCEDURE: Colonoscopy. INDICATIONS FOR COLONOSCOPY: Anemia, rectal bleeding. MEDICATIONS: The patient was done under MAC, please see anesthesiologist's note. PROCEDURE IN DETAIL: With the patient in left lateral decubitus position, a flexible fiberoptic Olympus colonoscope was inserted into the rectum with ease and advanced all the way to the cecum. Diverticular disease was noted throughout including the cecum. The scope was then withdrawn slowly and mucosa overlying the ascending, transverse, descending, and sigmoid other than for diverticular disease appeared to be within normal limits. The scope was then retroflexed into the distal rectum and small internal hemorrhoids were noted, none of which was actively bleeding. The scope was then straightened out, it was subsequently withdrawn. The patient tolerated the procedure well. IMPRESSION AND PLAN: 1. Pandiverticulosis. 2. Internal hemorrhoids, none actively bleeding. Source of bleeding could be diverticular, but the patient might benefit from a small bowel series which could be done on an outpatient basis. Christian Estrada MD [facility] [place] /[id number] cc: Michael Jarvis MD
[2019-03-28] VITALS: BP 115/56
--- NOTE | 2019-03-28 | NUR ---
Patient iraqi speaking. Daughter at the bedside to translate. Patient denies pain or discomfort at this time. Patient up to BSC to void with asst.
[2019-03-28] MEDS: METRONIDAZOLE 500MG/NS 100ML 100 ML IV SCH ×2 (01:00→08:46)
[2019-03-28 04:00] VITALS: BP 141/65
--- NOTE | 2019-03-28 04:02 | NUR ---
Patient resting quitly at this time. Continue monitor for changes in condition.
[2019-03-28] MEDS: PANTOPRAZOL 40MG/SOD CHL 0.9% 50 ML IV SCH (04:30)
[2019-03-28] MEDS: VANCOMYCIN 250MG/5ML ORAL SOLN PO SCH (05:19)
[2019-03-28 06:25] LABS: BASOPHILS % 0.2 % (0.0-1.0); EOSINOPHILS # (AUTO) 0.1 (0.0-0.4); EOSINOPHILS % 2.1 % (0.0-6.0); HEMATOCRIT 23.9 % (34.2-44.1); HEMOGLOBIN 7.6 g/dL (12.0-16.0); LYMPHOCYTES # (AUTO) 1.3 (1.0-3.2); LYMPHOCYTES % 20.2 % (18.0-39.1); MEAN CORPUSCULAR HEMOGLOBIN 29.8 pg (28-32); MEAN CORPUSCULAR HGB CONC 31.8 g/dL (31-35); MEAN CORPUSCULAR VOLUME 93.7 fL (81-99); MONOCYTES # (AUTO) 0.3 (0.2-0.8); MONOCYTES % 5.2 % (4.4-11.3); NEUTROPHILS # (AUTO) 4.6 (2.1-6.9); NEUTROPHILS % 71.8 % (38.7-80.0); PLATELET COUNT 229 x10e3/uL (140-360); RED BLOOD COUNT 2.55 x10e6/uL (3.6-5.1); RED CELL DISTRIBUTION WIDTH 16.1 % (11.7-14.4)
[2019-03-28 06:45] LABS: ANION GAP 10.1 mmol/L (8-16); BLOOD UREA NITROGEN 13 mg/dL (7-26); BUN/CREATININE RATIO 18 (6-25); CALCIUM 9.3 mg/dL (8.4-10.2); CARBON DIOXIDE 18 mmol/L (22-29); CHLORIDE 113 mmol/L (98-107); CREATININE, SERUM 0.73 mg/dL (0.57-1.11); EST GLOMERULAR FILTRATION RATE > 60 ML/MIN (60-); GLUCOSE 107 mg/dL (74-118); POTASSIUM 3.1 mmol/L (3.5-5.1); SODIUM 138 mmol/L (136-145)
--- NOTE | 2019-03-28 07:12 | NUR ---
pt asleep resp even and unlabored at this time no distress noted , pt easily aroused at this time. pt has family member at bedside, call light in reach.
[2019-03-28] MEDS ORDERED: CHOLESTYRAMINE 4 GM PACKET PO PRN (08:45)
[2019-03-28] MEDS: VALSARTAN 160 MG TAB PO SCH (08:47)
[2019-03-28] MEDS: AMLODIPINE BESYLATE 10 MG TAB PO SCH (08:47)
[2019-03-28] MEDS: CYANOCOBALAMIN 1,000 MCG TAB PO SCH (08:47)
[2019-03-28 08:50] VITALS: BP 167/71
[2019-03-28] MEDS ORDERED: POTASSIUM CHLORIDE 20 MEQ TAB CR PO ONE (09:20)
[2019-03-28 09:26] VITALS: BP 167/71
[2019-03-28] MEDS: SIMBRINZA OP SCH (10:25)
[2019-03-28] MEDS: ARTIFICIAL TEARS (OPTH) 15 ML BTL OU SCH (10:25)
[2019-03-28 11:44] VITALS: BP 93/46
--- NOTE | 2019-03-28 12:00 | NUR ---
pt discharged home resp even and unlabored, no c/o pain iv site removed, cath tip intact, no swelling no redness to site prescriptions given.
--- NOTE | 2019-03-28 12:22 | NUR ---
IMM LETTER EXPLAINED TO PT AND DTR. VERBALIZED UNDERSTANDING. IMM LETTER WAS SIGNED. COPY TO THE PT AND COPY TO THE CHART.
--- NOTE | 2019-03-29 04:59 | Discharge Summary ---
ADMISSION DIAGNOSES: Acute blood loss anemia, upper gastrointestinal bleed, hypertension, possible colitis, urinary tract infection present on admission. DISCHARGE DIAGNOSES: Pain plus Clostridium difficile colitis, present on admission, rule out urinary tract infection. Gastritis, small sliding hiatal hernia, pandiverticulosis and internal hemorrhoids, history of mild dementia, glaucoma, hypertension, possible ulcerative colitis or nonspecific colitis. The patient is a poor historian and daughter lives out of town. PAST SURGICAL HISTORY: Hysterectomy, cholecystectomy, hernia repair, left total knee replacement. FAMILY HISTORY: Noncontributory. SOCIAL HISTORY: Noncontributory. HOSPITAL COURSE: An 83-year-old female with black tarry stools the last couple of days. She had a recent left total knee replacement and was on Augmentin postop for urine infection. On admission, the patient's hemoglobin was 10 and then the next day it dropped to 7.6. The patient was started on a Protonix drip. Stool for blood was positive. GI bleed scan was negative. The patient had an EGD that showed cervical esophagus, small sliding hiatal hernia, gastritis. Urine culture was negative. Clostridium difficile came back positive. The patient was started on vancomycin p.o. for Clostridium difficile and Rocephin for possible UTI. Hemoglobin remained stable, but the patient then had a colonoscopy, which showed pandiverticulosis and internal hemorrhoids, none actively bleeding. Per GI recommendation, the patient would benefit from a small bowel series, but that to be done outpatient. As the hemoglobin remained stable, the patient is tolerating diet. She will be sent home with family with new prescriptions for Norvasc, vitamin B12, Flagyl, Protonix, vancomycin p.o., vitamin C, iron, and Questran. The patient and daughter understand discharge instructions and agrees to plan. Vital signs stable. The patient is afebrile. Dictated by Viky Podn, NIDIA MD [facility] /[id number]
== END 2019-03-28 13:38 | disposition home or self-care (01) | DRG 378 ==
LOC: ER 07:06 → ERHOLD 11:23 → MED/SURG3 12:18 → OBSVTOIN 03-26 08:54
PROVIDERS: ADMIT Internal Medicine; ATTEND Internal Medicine
PROC: 0DB78ZX Excision of Stomach, Pylorus, Via Natural or Artificial Opening Endoscopic, Diagnostic (ICD-10-PCS; 2019-03-25)
PROC: 0DB58ZX Excision of Esophagus, Via Natural or Artificial Opening Endoscopic, Diagnostic (ICD-10-PCS; 2019-03-25)
PROC: 0DJD8ZZ Inspection of Lower Intestinal Tract, Via Natural or Artificial Opening Endoscopic (ICD-10-PCS; principal; 2019-03-27 14:43)
DX: K92.2 Gastrointestinal hemorrhage, unspecified (principal); A04.72 Enterocolitis due to Clostridium difficile, not specified as recurrent; D62 Acute posthemorrhagic anemia; K51.90 Ulcerative colitis, unspecified, without complications; K57.30 Diverticulosis of large intestine without perforation or abscess without bleeding; K29.70 Gastritis, unspecified, without bleeding; K44.9 Diaphragmatic hernia without obstruction or gangrene; I10 Essential (primary) hypertension; F03.90 Unspecified dementia, unspecified severity, without behavioral disturbance, psychotic disturbance, mood disturbance, and anxiety; E53.8 Deficiency of other specified B group vitamins
CPT/HCPCS: 36415; 43239; 45378; 78278; 80048; 80053; 81001; 82270; 82607; 82746; 83540; 83630; 84439; 84443; 84466; 85014; 85018; 85025; 85610; 85730; 87086; 87493; 88305; 88312; 93005; 97139; 99284; A9512; G0378; J0696; J1610; J2405; J3010; J7050